=== PATIENT | female | born 1995 | race Two or more races ===

== ENCOUNTER 2020-01-19 13:21 | Emergency (ER) | payer BC, OTHER ==
[~2020-01-19] VITALS: Ht 160 cm; Wt 55.3 kg
[2020-01-19 17:46] VITALS: BP 143/109
== END 2020-01-19 17:55 | disposition home or self-care (01) ==
LOC: ER 13:21
DX: J18.8 Other pneumonia, unspecified organism (principal); Z20.828 Contact with and (suspected) exposure to other viral communicable diseases
CPT/HCPCS: 36415; 71045; 87426; 99284; C9803; U0003